=== PATIENT | female | born 1950 | race Caucasian/White ===

== ENCOUNTER → 2016-11-08 | Outpatient (CLI) | payer BC ==
[~2016-11-08] MED LIST: DILANTIN 100MG100 MG PO; HYDROCODONE-APA1 TA1 PO; TEGRETOL 200MG200 MG PO
--- NOTE | 2016-11-08 15:09 | RADIOLOGY REPORT PS360 ---
HIP RT 2-3V W/PELVIS IF PERFOR HISTORY: RT HIP PAIN ORDERING PHYSICIAN: Abdulaziz Camacho MD PATIENT AGE: 66 years COMPARISON: None FINDINGS: No fracture or dislocation is evident. Minimal osteoarthritic changes are present with minimal spurring along the inferior acetabulum. Incidental calcification noted along both iliac crests at the anterior superior iliac spine region on both sides. Multiple pelvic calcifications are present consistent with phleboliths. IMPRESSION: 1. No acute finding. 2. Minimal osteoarthritic change of the right hip
== END ==
LOC: RAD 14:25
DX: M25.551 Pain in right hip (principal)